=== PATIENT | male | born 1970 | race Caucasian/White ===

== ENCOUNTER 2024-01-17 22:54 | Inpatient (IN) | payer MEDICAID ==
[~2024-01-17] VITALS: Ht 185.4 cm; Wt 119.3 kg
[2024-01-17] MEDS: METHYLPREDNISOLONE SOD SUCC 125MG/2ML (ACT-O-VIAL) IV STA (23:15)
[2024-01-17 23:27] LABS: DIFFERENTIAL COMMENT 0; EOSINOPHILS % 0.8 % (0.0-5.0); HEMATOCRIT. 43.5 % (42.0-52.0); HEMOGLOBIN. 14.7 g/dL (14.0-18.0); MEAN CORPUSCULAR HGB CONC 33.8 g/dL (31.0-37.0); MEAN PLATELET VOLUME 9.2 fl (7.4-10.4); MONOCYTES % 10.2 % (2.0-8.0); PLATELET 405 x1000/uL (130-400); RED BLOOD CELL COUNT 5.65 mill/uL (4.7-6.1); RED CELL DISTRIBUTION WIDTH 14.5 % (11.6-14.6); WHITE BLOOD COUNT 11.3 x1000/uL (4.5-11.0)
[2024-01-17 23:35] VITALS: PULSE 125; RESP 24; O2SAT 95
[2024-01-17] MEDS: IPRATROPIUM BROMIDE (0.02%) 0.5MG/2.5ML NEB HHN STA (23:35)
[2024-01-17] MEDS: ALBUTEROL (0.083%) 2.5MG/3ML NEB HHN SCH (23:35)
[2024-01-17 23:39] LABS: CHLORIDE 102 mEq/L (98-107); POTASSIUM 3.5 mEq/L (3.5-5.1); SODIUM 132 mEq/L (136-145)
[2024-01-17 23:40] LABS: CALCIUM 9.9 mg/dL (8.7-10.4); CARBON DIOXIDE 22 mEq/L (21-32)
[2024-01-17 23:45] LABS: GLUCOSE 299 mg/dL (70-105); UREA NITROGEN BLOOD 14 mg/dL (9-23)
[2024-01-17 23:48] LABS: TROPONIN I HIGH SENSITIVITY < 4 ng/L (3.0-53)
[2024-01-18] VITALS (7 sets, daily range): BP systolic 120–139; BP diastolic 39–75; PULSE 94–111; RESP 15–19; TEMP 97.7–98.2; O2SAT 99
[2024-01-18] MEDS: METHYLPREDNISOLONE SOD SUCC 125MG/2ML (ACT-O-VIAL) IV NR (01:12)
[2024-01-18] MEDS: MAGNESIUM 2 G PREMIX 50 ML IV ONE (01:28)
[2024-01-18] MEDS ORDERED: IPRATROPIUM/ALBUTEROL 0.5-3(2.5)MG/3ML NEB HHN PRN (05:45)
[2024-01-18] MEDS ORDERED: DEXTROSE 50% WATER 50ML SYRINGE IV PRN (08:30)
[2024-01-18] MEDS ORDERED: DOCUSATE SODIUM 100MG CAPSULE PO PRN (08:30)
[2024-01-18] MEDS ORDERED: GUAIFENESIN 200MG/10ML SUGAR FREE UDC PO PRN ×2 (08:30→11:15)
[2024-01-18] MEDS ORDERED: CLONIDINE 0.1MG TABLET PO PRN (08:30)
[2024-01-18] MEDS ORDERED: ACETAMINOPHEN 325MG TABLET PO PRN (08:30)
[2024-01-18] MEDS: IPRATROPIUM/ALBUTEROL 0.5-3(2.5)MG/3ML NEB HHN SCH (08:55)
[2024-01-18 09:23] LABS: HEMATOCRIT 41.8 % (42.0-52.0); MEAN CORPUSCULAR HEMOGLOBIN 25.7 pg (28.0-32.0); MEAN CORPUSCULAR HGB CONC 33.4 g/dL (31.0-37.0); MEAN CORPUSCULAR VOLUME 76.8 fL (80.0-94.0); PLATELET 363 x1000/uL (130-400); RED BLOOD CELL COUNT 5.44 mill/uL (4.7-6.1); RED CELL DISTRIBUTION WIDTH 14.8 % (11.6-14.6); WHITE BLOOD COUNT 10.6 x1000/uL (4.5-11.0)
[2024-01-18 09:30] LABS: CHLORIDE 97 mEq/L (98-107); POTASSIUM 4.6 mEq/L (3.5-5.1); SODIUM 128 mEq/L (136-145)
[2024-01-18 09:31] LABS: CALCIUM 9.3 mg/dL (8.7-10.4); CARBON DIOXIDE 19 mEq/L (21-32)
[2024-01-18 09:36] LABS: CREATININE 1.1 mg/dL (0.6-1.3); TRIGLYCERIDE 107 mg/dL (0-150)
[2024-01-18 09:37] LABS: LDL CHOLESTEROL 169 mg/dL (5-100); UREA NITROGEN BLOOD 16 mg/dL (9-23)
[2024-01-18 09:38] LABS: ALANINE AMINOTRANSFERASE 19 IU/L (10-49); ALBUMIN 4.4 g/dL (3.2-4.8); ASPARTATE AMINOTRANSFERASE 19 IU/L (<34); CHOLESTEROL 203 mg/dL (<200); HDL CHOLESTEROL 33 mg/dL (>55); PHOSPHORUS 4.9 mg/dL (2.5-4.9)
[2024-01-18 09:39] LABS: BILIRUBIN TOTAL 0.5 mg/dL (0.1-1.0); PROTEIN TOTAL 7.6 g/dL (6.0-8.3)
[2024-01-18 09:40] LABS: THYROID STIMULATING HORMONE 0.36 uIU/mL (0.55-4.78)
[2024-01-18 09:44] LABS: GLUCOSE 469 mg/dL (70-105)
[2024-01-18 09:46] LABS: VITAMIN B12 SERUM 614 pg/mL (211-911)
[2024-01-18 10:01] LABS: FOLIC ACID (FOLATE) SERUM > 20.00 ng/mL (>5.38)
[2024-01-18] MEDS: INSULIN LISPRO 100 UNITS/ML SUBCUT SCH (10:05)
[2024-01-18] MEDS ORDERED: MAGNESIUM/ALUMINUM HYDROXIDE/SIMETHICONE 30ML UDC PO PRN (11:15)
[2024-01-18] MEDS: BLOOD SUGAR DIAGNOSTIC STRIP TEST SCH (11:53)
[2024-01-18] MEDS: TAMSULOSIN HCL 0.4MG SR CAPSULE PO SCH (12:19)
[2024-01-18] MEDS: AMLODIPINE 5MG TABLET PO SCH (12:20)
[2024-01-18] MEDS: LISINOPRIL 10MG TABLET PO SCH (12:20)
[2024-01-18] MEDS: INSULIN GLARGINE 100 UNITS/ML SUBCUT NR (12:27)
[2024-01-18] MEDS ORDERED: INFLUENZA VACCINE 05/PF 0.5 ML SYRINGE IM ONE (14:00)
[2024-01-18] MEDS ORDERED: PNEUMOCOCCAL 23-VAL P-SAC VAC 0.5 ML IM ONE (14:00)
[2024-01-18] MEDS: SODIUM CHLORIDE 0.9% INJ 3ML FLUSH IVF SCH (14:00)
[2024-01-18 14:03] LABS: CLARITY URINE CLEAR (CLEAR); COLOR URINE YELLOW (YELLOW); GLUCOSE URINE 3+ (NEGATIVE); KETONES URINE 1+ (NEGATIVE); LEUKOCYTE ESTERASE URINE NEGATIVE (NEGATIVE); NITRITE URINE NEGATIVE (NEGATIVE); OCCULT BLOOD URINE NEGATIVE (NEGATIVE); PH URINE 5.5 (4.5-8.0); PROTEIN URINE NEGATIVE (NEGATIVE); SPECIFIC GRAVITY URINE 1.032 (1.005-1.030); UROBILINOGEN URINE 0.2 E.U./dL (0.2-1.0)
[2024-01-18 14:30] LABS: *AMPHETAMINES SCREEN URINE NEGATIVE (NEGATIVE); *BARBITURATES SCREEN URINE NEGATIVE (NEGATIVE); *BENZODIAZEPINES SCREEN URINE NEGATIVE (NEGATIVE); *COCAINE SCREEN URINE NEGATIVE (NEGATIVE); CANNABINOID URINE SCREEN NEGATIVE (NEGATIVE); ECSTASY MDMA SCREEN URINE NEGATIVE (NEGATIVE); METHADONE URINE SCREEN NEGATIVE (NEGATIVE); OPIATES URINE SCREEN NEGATIVE (NEGATIVE); PHENCYCLIDINE URINE SCREEN NEGATIVE (NEGATIVE)
[2024-01-18] MEDS ORDERED: LANTUS SQ (14:42)
[2024-01-18] MEDS ORDERED: INSLIS SUBCUT (14:44)
[2024-01-18] MEDS: INSULIN LISPRO 100 UNITS/ML SUBCUT NR (15:12)
[2024-01-18] MEDS: SODIUM CHLORIDE 0.9% 1,000 ML IV SCH (15:22)
[2024-01-18] MEDS: BUDESONIDE 0.5MG/2ML NEB HHN SCH (15:22)
[2024-01-18] MEDS: METHYLPREDNISOLONE SOD SUCC 125MG/2ML (ACT-O-VIAL) IV SCH (15:22)
[2024-01-18 15:41] LABS: CREATINE KINASE 395 IU/L (46-171)
[2024-01-18 15:42] LABS: CREATINE KINASE MB FRACTION 1.3 ng/mL (0.5-3.6)
[2024-01-18 15:46] LABS: TROPONIN I HIGH SENSITIVITY < 4 ng/L (3.0-53)
[2024-01-18 15:58] LABS: WBC URINE 0-2 /hpf (0-2)
[2024-01-18 15:59] LABS: RBC URINE NONE SEEN /hpf (0-2); SQUAMOUS EPITHELIAL CELL URINE NONE SEEN /lpf (RARE/1+)
[2024-01-18 16:00] LABS: BACTERIA URINE NONE SEEN
[2024-01-18] MEDS: INSULIN REGULAR (HUMULIN R) 300UNITS/3ML VIAL IV NR ×2 (17:37→21:20)
[2024-01-18] MEDS: ENOXAPARIN 30MG/0.3ML SYR SUBCUT SCH (17:41)
[2024-01-18] MEDS: ATORVASTATIN CALCIUM 40MG TABLET PO SCH (21:19)
[2024-01-18] MEDS: LACTULOSE 20G/30ML UDC PO SCH (21:19)
[2024-01-18] MEDS: INSULIN GLARGINE 100 UNITS/ML SUBCUT SCH (21:21)
[2024-01-18 21:52] LABS: CHLORIDE 96 mEq/L (98-107); POTASSIUM 4.9 mEq/L (3.5-5.1); SODIUM 124 mEq/L (136-145)
[2024-01-18 21:53] LABS: CALCIUM 9.2 mg/dL (8.7-10.4); CARBON DIOXIDE 19 mEq/L (21-32)
[2024-01-18 21:58] LABS: CREATININE 1.1 mg/dL (0.6-1.3); UREA NITROGEN BLOOD 28 mg/dL (9-23)
[2024-01-18] MEDS ORDERED: INSULIN GLARGINE 100 UNITS/ML SUBCUT SCH (22:00)
[2024-01-18 22:05] LABS: GLUCOSE 647 mg/dL (70-105)
[2024-01-19] VITALS (12 sets, daily range): BP systolic 113–139; BP diastolic 65–83; PULSE 90–108; RESP 16–24; TEMP 97.1–97.9; O2SAT 95–96
[2024-01-19 01:26] LABS: CREATINE KINASE MB FRACTION 1.3 ng/mL (0.5-3.6)
[2024-01-19 01:28] LABS: CREATINE KINASE 275 IU/L (46-171); TROPONIN I HIGH SENSITIVITY < 4 ng/L (3.0-53)
[2024-01-19] MEDS: IPRATROPIUM/ALBUTEROL 0.5-3(2.5)MG/3ML NEB HHN PRN (02:34)
[2024-01-19] MEDS: INSULIN LISPRO 100 UNITS/ML SUBCUT SCH ×2 (05:47→13:08)
[2024-01-19] MEDS ORDERED: INSULIN LISPRO 100 UNITS/ML SUBCUT SCH (06:40)
[2024-01-19 06:49] LABS: BASOPHILS % 0.3 % (0.0-2.0); DIFFERENTIAL COMMENT 0; HEMATOCRIT. 37.7 % (42.0-52.0); HEMOGLOBIN. 12.2 g/dL (14.0-18.0); LYMPHOCYTES % 7.3 % (20.0-50.0); MEAN CORPUSCULAR HEMOGLOBIN 24.7 pg (28.0-32.0); MEAN CORPUSCULAR HGB CONC 32.3 g/dL (31.0-37.0); MEAN CORPUSCULAR VOLUME 76.7 fL (80.0-94.0); MEAN PLATELET VOLUME 10.1 fl (7.4-10.4); MONOCYTES % 3.3 % (2.0-8.0); NEUTROPHILS % 89.1 % (40.0-76.0); PLATELET 378 x1000/uL (130-400); RED BLOOD CELL COUNT 4.92 mill/uL (4.7-6.1); RED CELL DISTRIBUTION WIDTH 14.6 % (11.6-14.6); WHITE BLOOD COUNT 18.8 x1000/uL (4.5-11.0)
[2024-01-19 07:02] LABS: CHLORIDE 101 mEq/L (98-107); POTASSIUM 4.1 mEq/L (3.5-5.1)
[2024-01-19 07:03] LABS: CARBON DIOXIDE 18 mEq/L (21-32); SODIUM 129 mEq/L (136-145)
[2024-01-19 07:08] LABS: CREATININE 0.9 mg/dL (0.6-1.3)
[2024-01-19 07:09] LABS: ALANINE AMINOTRANSFERASE 15 IU/L (10-49); UREA NITROGEN BLOOD 20 mg/dL (9-23)
[2024-01-19 07:10] LABS: ALBUMIN 4.3 g/dL (3.2-4.8); ASPARTATE AMINOTRANSFERASE 12 IU/L (<34)
[2024-01-19 07:11] LABS: BILIRUBIN TOTAL 0.4 mg/dL (0.1-1.0)
[2024-01-19 07:58] LABS: GLUCOSE 442 mg/dL (70-105)
[2024-01-19] MEDS: INSULIN GLARGINE 100 UNITS/ML SUBCUT SCH (09:54)
[2024-01-19 11:12] LABS: BG BASE EXCESS -5.7 mmol/L (-2.0-2.0); BG CARBOXYHEMOGLOBIN 0.3 % (0.5-1.5); BG DEOXYHEMOGLOBIN 4.1 % (0.0-5.0); BG FRACTION INSPIRED OXYGEN 21; BG HCO3 ACT 17.8 mmol/L (22.0-26.0); BG OXYGEN SATURATION 95.9 % (92.0-98.5); BG OXYHEMOGLOBIN 95.6 % (94.0-97.0); BG PCO2 29.3 mmHg (35.0-45.0); BG PH 7.402 (7.350-7.450); BG PO2 82.6 mmHg (75.0-100.0); BG SAMPLE SITE LEFT RADIAL; BG TOTAL HEMOGLOBIN 12.6 g/dL (12.0-18.0); BG VENT MODE ROOM AIR
[2024-01-19] MEDS: ONDANSETRON HCL 4MG/2ML INJ IV PRN (13:12)
[2024-01-19] MEDS: METHYLPREDNISOLONE SOD SUCC 40MG/ML (ACT-O-VIAL) IV SCH (18:02)
[2024-01-19] MEDS: LORAZEPAM 0.5MG TABLET PO PRN (23:57)
[2024-01-20] VITALS (12 sets, daily range): BP systolic 105–141; BP diastolic 49–81; PULSE 75–102; RESP 18–25; TEMP 97.6–98.4; O2SAT 95
[2024-01-20 07:17] LABS: CALCIUM 8.4 mg/dL (8.7-10.4); CHLORIDE 104 mEq/L (98-107); POTASSIUM 4.4 mEq/L (3.5-5.1); SODIUM 132 mEq/L (136-145)
[2024-01-20 07:18] LABS: CARBON DIOXIDE 21 mEq/L (21-32)
[2024-01-20 07:21] LABS: BASOPHILS % 0.1 % (0.0-2.0); DIFFERENTIAL COMMENT 0; HEMATOCRIT. 34.5 % (42.0-52.0); HEMOGLOBIN. 11.1 g/dL (14.0-18.0); LYMPHOCYTES % 11.3 % (20.0-50.0); MEAN CORPUSCULAR HEMOGLOBIN 25.3 pg (28.0-32.0); MEAN CORPUSCULAR HGB CONC 32.2 g/dL (31.0-37.0); MEAN CORPUSCULAR VOLUME 78.5 fL (80.0-94.0); MONOCYTES % 6.2 % (2.0-8.0); NEUTROPHILS % 82.4 % (40.0-76.0); PLATELET 326 x1000/uL (130-400); RED CELL DISTRIBUTION WIDTH 14.6 % (11.6-14.6); WHITE BLOOD COUNT 14.9 x1000/uL (4.5-11.0)
[2024-01-20 07:23] LABS: CREATININE 0.8 mg/dL (0.6-1.3); UREA NITROGEN BLOOD 12 mg/dL (9-23)
[2024-01-20 07:50] LABS: GLUCOSE 430 mg/dL (70-105)
[2024-01-20] MEDS: ACETAMINOPHEN 325MG TABLET PO PRN (11:07)
[2024-01-20] MEDS: PANTOPRAZOLE SODIUM 40 MG/VIAL IV NR (15:21)
[2024-01-20] MEDS: DIPHENHYDRAMINE 50MG/ML VIAL IV PRN (21:38)
[2024-01-21] VITALS (11 sets, daily range): BP systolic 128–150; BP diastolic 73–95; PULSE 76–117; RESP 16–20; TEMP 96.9–98.2; O2SAT 93–100
[2024-01-21] MEDS: METHYLPREDNISOLONE SOD SUCC 40MG/ML (ACT-O-VIAL) IV SCH ×2 (10:00→18:03)
[2024-01-22] VITALS: BP 139/76; PULSE 80; RESP 19; TEMP 97.9
[2024-01-22 00:39] VITALS: RESP 22
[2024-01-22 04:00] VITALS: BP 118/73; PULSE 78; RESP 19; TEMP 98.2
[2024-01-22 04:31] VITALS: PULSE 78; RESP 18; O2SAT 95
[2024-01-22 08:00] VITALS: BP 140/88; PULSE 80; RESP 16; TEMP 97.4
[2024-01-22 09:50] VITALS: PULSE 79; RESP 22; O2SAT 99
[2024-01-22] MEDS ORDERED: AMLO5TAB88 PO (11:11)
[2024-01-22] MEDS ORDERED: LIP40 PO (11:11)
[2024-01-22] MEDS ORDERED: P20 PO (11:11)
== END 2024-01-22 12:20 | disposition home or self-care (01) | DRG 140 ==
LOC: ER 22:54 → 5WST 01-18 02:24 → 7EST 01-18 10:42
PROVIDERS: ADMIT Internal Medicine; ATTEND Internal Medicine
DX: J44.1 Chronic obstructive pulmonary disease with (acute) exacerbation (principal); J96.01 Acute respiratory failure with hypoxia; E87.1 Hypo-osmolality and hyponatremia; J45.901 Unspecified asthma with (acute) exacerbation; E11.65 Type 2 diabetes mellitus with hyperglycemia; D72.829 Elevated white blood cell count, unspecified; E87.6 Hypokalemia; I10 Essential (primary) hypertension; Z79.4 Long term (current) use of insulin; N40.0 Benign prostatic hyperplasia without lower urinary tract symptoms; Z88.0 Allergy status to penicillin
CPT/HCPCS: 36415; 36600; 71045; 80048; 80053; 80061; 80305; 81003; 82010; 82375; 82550; 82553; 82607; 82746; 82805; 82962; 83036; 83605; 83735; 83880; 83930; 83935; 84100; 84443; 84484; 85025; 85027; 85379; 93005; 93306; 93970; 94640; 94660; 99291; C9113; J1200; J1650; J1815; J2405; J2920; J2930; J3475; J7030; J7626